=== PATIENT | female | born 1965 | race Caucasian/White ===

== ENCOUNTER 2018-03-15 05:07 | Emergency (ER) | END 2018-03-15 10:47 | disposition home or self-care (01) ==

== ENCOUNTER 2018-04-06 09:06 | Inpatient (IN) | END 2018-04-09 19:32 | disposition home or self-care (01) | DRG 281 ==

== ENCOUNTER 2018-04-16 17:07 | Emergency (ER) | END 2018-04-16 19:42 | disposition home or self-care (01) ==

== ENCOUNTER 2018-05-23 15:02 | Emergency (ER) | END 2018-05-23 18:10 | disposition home or self-care (01) ==